=== PATIENT | male | born 2000 | race Caucasian/White ===

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

== ENCOUNTER 2022-06-05 05:54 | Day surgery (SDC) | payer OTHER ==
[2022-06-05] MEDS ORDERED: Xylocaine 1% Vial 30 ML PF IJ ONE (06:22)
[2022-06-05] MEDS ORDERED: Marcaine Mpf 0.5% Vial 30 Ml ONE (06:22)
[2022-06-05] MEDS ORDERED: CEFAZOLIN 2 GM-D5W BAG** 2 GM/50 ML ML IV SCH (06:30)
[2022-06-05] MEDS ORDERED: Lactated Ringers 1,000 ML IV SCH (06:30)
[2022-06-05 06:37] VITALS: O2SAT 97
[2022-06-05 06:55] LABS: Hematocrit 44.1 % (42-50); Hemoglobin 14.9 g/dL (12.5-18.0); Mean Cell Volume 88.4 fL (78-100); Mean Corpuscular Hemoglobin 29.9 pg (26-32); Mean Corpuscular Hgb Concent. 33.8 g/dL (32-36); Platelet Count 190 x10^3/uL (150-450); Red Blood Count 4.99 x10^6/uL (4.1-5.6); Red Cell Distribution Width 11.8 % (11.5-14.0); White Blood Count 6.4 x10^3/uL (4.0-10.5)
[2022-06-05 07:09] LABS: ANION GAP 14.3 MEQ/L (5-15); BLOOD UREA NITROGEN 18 mg/dL (9-20); CHLORIDE 105 mmol/L (98-107); Calcium 8.8 mg/dL (8.4-10.2); Carbon Dioxide 26 mmol/L (22-30); Creatinine 1 1.07 mg/dL (0.66-1.25); EST GLOMERULAR FILTRATION RATE > 60.0 ML/MIN; Glucose 95 mg/dL (74-106); Potassium 3.8 mmol/L (3.5-5.1); SODIUM 142 mmol/L (137-145)
[2022-06-05] MEDS ORDERED: Marcaine 0.5%/Epinephrine 10 ML ONE (09:25)
[2022-06-05] MEDS ORDERED: Naropin 0.5% 30 ML VIAL ONE (09:25)
[2022-06-05] MEDS ORDERED: Zofran 4 MG/2 ML VIAL ONE ×2 (09:30→12:55)
[2022-06-05] MEDS ORDERED: Decadron 4 MG INJ ONE (09:30)
[2022-06-05] MEDS ORDERED: SUBLIMAZE 100 MCG/2 ML ONE (09:31)
[2022-06-05] MEDS ORDERED: Quelicin Fliptop 200 MG/10 ML ONE (09:32)
[2022-06-05] MEDS ORDERED: Lactated Ringers 1,000 ML IV ONE (09:51)
[2022-06-05] MEDS ORDERED: Versed 2 MG/2 ML Injection ONE (09:52)
[2022-06-05] MEDS ORDERED: Epinephrine Preservative Free 1 MG/ML ONE (10:00)
[2022-06-05] MEDS ORDERED: Ephedrine Sulfate 50 MG/ML ONE (11:06)
--- NOTE | 2022-06-05 12:27 | XRAY ---
Indication: Right ankle arthroscopy with lateral joint stabilization. Intraoperative fluoroscopy provided for 50 seconds. 14 digital spot images submitted for interpretation demonstrates instrumentation of the talus and lateral malleolus. Correlate with intraoperative findings/report.
[2022-06-05 13:34] VITALS: BP 131/79; PULSE 87
--- NOTE | 2022-06-05 14:30 | OP ---
SURGERY DATE/TIME: 06/05/2022 0949 PREOPERATIVE DIAGNOSES: 1) Right ankle pain. 2) Right ankle synovitis. 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 POSTOPERATIVE DIAGNOSES: 1) Right ankle pain. 2) Right ankle synovitis. 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 4) Osteochondral defect and loose body. PROCEDURES: 1) Ankle arthroscopy with extensive synovectomy. 2) Removal of loose body. 3) Osteochondral drilling. 4) Lateral ankle stabilization. SURGEON: Tre Jackson DPM. BED AND BREAKFAST INNKEEPER: None. ANESTHESIA: General plus a popliteal and saphenous block to the right lower extremity. HEMOSTASIS: Thigh tourniquet set to 300 mm of Mercury for a total of 60 total tourniquet minutes. ESTIMATED BLOOD LOSS: Less than 10 cc. INJECTABLES: See anesthesia report for details. MATERIALS: Khurram anterior talofibular ligament internal brace with two - 2.9 JuggerKnot with Broadband and two Quattro Links and then a 1.4 JuggerKnot for the anterior talofibular ligament, 4-0 Monocryl and 3-0 Nylon. 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 At this time the patient did suffer an injury approximately four to five months ago. He has been treated conservatively for this issue. However, still has clinical instability and significant amount of pain. The patient had discussion in regards to treatment options. Given the patient's extreme pain, option was provided to proceed with surgical intervention. Based on MRI it did not appear that there were any osteochondral injuries. However, the patient was adamant that something did not feel right within his ankle joint and to proceed with surgical intervention would be the best option. At this time the patient understands all risks, complications and benefits of surgical intervention including but not limited to infection, hematoma, seroma, possibility of delayed wound healing, nonwound healing, possibility of delayed bone healing and nonbone healing. At this time the patient does have a possibility of recurrence of lateral ankle instability however we will do everything in order to prevent that from occurring. The patient understands this. Plenty of time was allowed for him and his father to ask questions prior to the procedure to which they were answered to the patient and his father's apparent satisfaction. No guarantees were provided as to the outcome. It is with that we proceed. DESCRIPTION OF PROCEDURE AND FINDINGS: The patient is brought into the OR and placed on the OR table in the supine position. At this time, general anesthesia was administered until the patient was sedated. A block was then provided to the popliteal and saphenous nerve distributions prior to surgical intervention. A thigh tourniquet was applied and set to 300 mm of Mercury. At this time right lower extremity was prepped and draped in the typical sterile fashion and lowered onto the surgical field. At this time attention was directed to the anterior aspect of the ankle where the medial malleolus and lateral malleolus were identified. The palpable dell of the ankle joint was then identified. The landmarks were utilized to demonstrate where the anteromedial and anterolateral portal sites were established. 30 cc were utilized to insufflate the ankle joint by providing an injection into the medial aspect of the right ankle and then an 11 blade was utilized to make an incision at the anteromedial portal of the ankle. The blunt obturator and the trocar were introduced through this site. The obturator was then removed and a 4 mm x 30 degree scope was introduced into the ankle joint gaining visualization of the joint with significant amounts of scar tissues. Lights were turned off and the anterolateral portal was established being careful not damage the superficial peroneal nerve at the anterolateral aspect of the ankle joint this was done under guidance of the light. An 11 blade was utilized to make an incision and the shaver was then introduced. Triangulation was performed and the scar tissue was debrided. It was noted that there was a significant amount of crabmeat synovitis as well as hemorrhagic synovitis that was debrided from the site as well as constrictures that were released from the surgical site. At this time loose body was encountered and removed from the anterolateral portal utilizing graspers. Once again, the joint was inspected and cleared of any synovitis. A probe was then utilized to check the cartilage quality which was seemingly perfect on the talus. On the dorsal medial aspect of the tibia, there appeared to be weak area when probed. The probe sank approximately 3 mm into the cartilage this was debrided and probed once again demonstrating even further sinking of the probe into the cartilage. At that time the shaver was then utilized to debride the area and then a chondral pick was utilized to microfracture the site. Blood was seen as well as adipose tissue extravasating from the puncture site. At this time the joint was flushed one more time and final pictures were taken. At this time attention was directed under fluoroscopic guidance to the lateral ankle where on the lateral view an anterior drill was performed demonstrating lateral ankle ligament disruption. At this time the tourniquet was inflated to 300 mm of Mercury after exsanguinating the leg. A curvilinear incision was placed at the lateral aspect of the ankle extending over the sinus tarsi of the talus this was carried down to the level of the adipose tissue utilizing a combination of blunt and sharp dissection being careful not to damage any neurovascular structures along the way. The extensor retinaculum and the anterior talofibular ligament were identified immediately leaving a cuff off of the fibula when resecting the anterior talofibular ligament. At this time the joint was inspected and debrided. The 1.5 JuggerKnot for the anterior talofibular ligament was then introduced into the lateral talar neck at the junction of the neck and the body under fluoroscopic guidance making sure not be within the posterior facet of the subtalar joint. At this time it was made sure that it was secure. The 2.9 JuggerKnot with Broadband were introduced into the fibula and a modified Brostrom-Gold Procedure with incorporating the extensor retinaculum was performed reefing up the lateral ankle ligaments. At this time the stability was checked under fluoroscopic guidance with live anterior drawer which appeared to have significantly improved at this time. Following this copious amount of sterile saline were utilized to flush the surgical site. 4-0 Monocryl was utilized to coapt the subcutaneous tissue and 3-0 Nylon was utilized in horizontal mattress-type fashion to coapt the skin in an everted-type fashion. A dressing consisting of Betadine, Adaptic, 4x4, Kerlix and a well-padded posterior splint with Sugar-Tong was applied to the patient's right lower extremity with the foot orthogonal relative to longitudinal axis of the leg. The patient was then reversed from anesthesia returned to the postoperative anesthesia care unit with vital signs stable and vascular status intact. The patient handled the anesthesia as well as the procedure without significant complication. Postoperative orders as indicated in the patient's discharge chart.
--- NOTE | 2022-06-06 08:49 | XRAY ---
50 seconds of fluoroscopy was used in surgery for a right ankle arthroscopy with lateral joint stabilization.
== END 2022-06-05 13:40 | disposition home or self-care (01) ==
LOC: SDC 05:54
PROVIDERS: ATTEND Podiatrist Foot & Ankle Surgery
DX: M65.871 Other synovitis and tenosynovitis, right ankle and foot (principal); M25.571 Pain in right ankle and joints of right foot; M25.371 Other instability, right ankle; S93.491A Sprain of other ligament of right ankle, initial encounter; S93.411A Sprain of calcaneofibular ligament of right ankle, initial encounter; M21.961 Unspecified acquired deformity of right lower leg; M24.071 Loose body in right ankle
CPT/HCPCS: 27698; 29891; 29894; 29895; 29898; 36415; 73610; 76000; 76937; 80048; 85027; C1713; J0171; J0330; J0690; J1100; J2001; J2250; J2405; J2795; J3010